=== PATIENT | male | born 1955 | race Caucasian/White ===

== ENCOUNTER 2017-11-17 18:53 | Outpatient (REF) | payer MEDICAID, SELFPAY ==
[2017-11-17 19:44] LABS: Anion Gap 10.7 mmol/L (3-11); BUN 25 mg/dL (7-18); CO2 22.3 mmol/L (21.0-32.0); CREATININE 1.33 mg/dL (0.70-1.30); Calcium 8.8 mg/dL (8.5-10.1); Chloride 107 mmol/L (98-107); Estimated GFR 54.13 (mL/min/1.73m2); Glucose 99 mg/dL (70-100); Potassium 4.4 mmol/L (3.5-5.1); Sodium 140 mmol/L (136-145)
== END 2017-11-17 19:13 ==
LOC: NCHCN 18:53
PROVIDERS: PCP Nurse Practitioner Adult Health; Referring Provider Nurse Practitioner Family; Visit Provider Nurse Practitioner Family
DX: I10 Essential (primary) hypertension (principal)
CPT/HCPCS: 80048

== ENCOUNTER 2017-12-01 19:06 | Outpatient (REF) | payer MEDICAID, SELFPAY ==
[2017-12-01 20:04] LABS: Anion Gap 10.8 mmol/L (3-11); BUN 20 mg/dL (7-18); CO2 24.2 mmol/L (21.0-32.0); CREATININE 1.21 mg/dL (0.70-1.30); Calcium 8.8 mg/dL (8.5-10.1); Chloride 102 mmol/L (98-107); Glucose 100 mg/dL (70-100); HDL Cholesterol 42 mg/dL (40-60); LDL CHOLESTEROL 135 mg/dL (<100); Potassium 4.6 mmol/L (3.5-5.1); Sodium 137 mmol/L (136-145)
== END 2017-12-01 19:26 ==
LOC: NCHCN 19:06
PROVIDERS: PCP Nurse Practitioner Adult Health; Visit Provider Nurse Practitioner Family
DX: I10 Essential (primary) hypertension (principal); E78.5 Hyperlipidemia, unspecified; Z72.0 Tobacco use
CPT/HCPCS: 80048; 83721; 83718

== ENCOUNTER 2024-01-10 03:36 | Emergency (ER) | payer MEDICARE, SELFPAY ==
[2024-01-10] VITALS (57 sets, daily range): BP systolic 164–230; BP diastolic 95–143; PULSE 57–85; RESP 11–28; TEMP 35.5–36.6; O2SAT 91–98
--- NOTE | 2024-01-10 03:30 | RT.EKG_ITS ---
APPROVED REPORT Exam: Resting ECG Reason for Exam: chest pain Patient Location: E HR:81 bpm ECG Measurements Heart Rate [address] 251 P 30 QRSd 107 QRS -24 QT 382 T 95 QTc 444 Conclusion Sinus rhythm...normal P axis, V-rate 60- [address] interval...CT >220, V-rate 50- 90 ST elevation secondary to LVH...Multiple VCG criteria Inferior STEMI w Lateral Reciprocal change
--- NOTE | 2024-01-10 03:38 | ED.GENADUL_ITS ---
Discharge Plan Disposition Patient Disposition: Transfer-Acute Inpatient Care Specific Acute Inpt Facility: [facility] Condition: Stable Discharge Details Clinical Impression: Acute ST elevation myocardial infarction (STEMI) of inferior wall Primary Care Provider: Rain Valencia ED Provider: Jose Butler [facility] General Mode of arrival: ambulatory . Date/Time Provider Initiated Documentation: 01/10/24 03:38 . Limitations to Documentation: no limitations . Information obtained by: patient and RN notes reviewed . HPI Narrative: Patient presents to ED with complaint of chest pain. Patient reports that around 2300 he developed what he thought was heartburn. He was unable to fall asleep. He took Tums and Aleve without relief. Pain continued to get worse. He had some lightheadedness and diaphoresis. He never developed any shortness of breath. No radiation of pain to the back or neck. Some radiation of pain down both arms. He denies any abdominal pain, vomiting. He has not seen a physician in many years. He did have a prior diagnosis of hypertension. He is also a smoker. He is currently not taking any medication. Related Data Allergies Allergy/AdvReac Type Severity Reaction Status Date / Time No Known Allergies Allergy Unverified 01/10/24 04:50 Review of Systems Narrative: As per HPI Exam Narrative Exam Narrative: Const: WDWN elderly male in NAD. VS per triage. HEENT: NC/AT. Normal facial exam. Neck: Supple. Trachea midline. Lungs: Normal respiratory effort. Lungs are clear. Cor: RRR without murmur. Good radial pulses. GI: Soft/ND/NT. Neuro: A+O x 3. Normal speech, mentation, gait. Cranial nerves II - XII grossly intact. No gross motor or sensory deficit. Ext: No C/C/E. Medical Decision Making Patient arrives to ED with complaint of chest pain that began at 2300 hrs. He has had some diaphoresis and lightheadedness but denies shortness of breath, back pain, abdominal pain. He has no neurologic changes. His lungs are clear. His saturations are normal. His blood pressure is markedly elevated. His EKG shows inferior wall STEMI with lateral reciprocal changes. Call was placed to [facility] immediately. IVs established and laboratory studies sent. Portable chest x-ray obtained. Patient given aspirin and Plavix, loading doses. He is also started on nitroglycerin and heparin intravenously. After discussion with cardiology at [facility] we have held the TNK for now given his markedly elevated blood pressure. If we can get his blood pressure down with nitroglycerin consider given TNK. 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 Patient's blood pressure slowly responded to the nitroglycerin drip. He was also given 4 morphine and 4 Zofran. Received a call back from cardiology. Given the delay in transfer while waiting for the helicopter to arrive we will obtain CTA of the chest and abdomen to rule out a dissection simply because of the markedly elevated blood pressure. Laboratory studies look surprisingly good. His white count is elevated 14.8 but hemoglobin is normal, little bit of renal insufficiency, normal electrolytes. Surprisingly initial troponin is 73 which is top limit for our reference range. CTA is completed and pending read. Blood pressure on return from CT is 180/95. Will rediscussed with cardiology regarding thrombolytics. Given his improved blood pressure and negative CTA we will proceed with 50 mg TNK per cardiology request. Patient is a lot more comfortable with only slight pain at this time. Nitroglycerin is at 80 mcgs. 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 Imaging Data Radiologic Study: Attestation: I personally reviewed and interpreted this imaging study as follows: Imaging: X-Ray My impression: Portable chest x-ray with no acute cardiopulmonary findings per my read. Lab Data Lab results reviewed: Yes I reviewed the patient's lab results. Lab results narrative: Per [facility] ECG Data Attestation: I personally reviewed and interpreted this ECG (s) as follows: Prior ECG tracings: not available for review Interpretation: STEMI Critical Care Time Critical Care Time Critical Care Time: Yes Total Critical Care Time: 75 Attestation: Upon my evaluation, this patient had a high probability of imminent or life- threatening deterioration, which required my direct attention, intervention, and personal management. I have personally provided 75 minutes of critical care time exclusive of time spent on separately billable procedures. Time includes monitoring for potential decompensation, ordering of tests and medications, review of laboratory and radiology results, discussion with consultants and documentation . Interventions were performed as documented above in procedures. [facility] All Active Problems (Updated 01/10/24 @ 04:10 by Jose Butler MD) Acute ST elevation myocardial infarction (STEMI) of inferior wall (Acute) Medical History HTN (hypertension) Social History Smoking/Tobacco Use Status: Current every day Tobacco Type: cigarettes Years smoked: 50 Smoking risk assessment performed?: Yes Alcohol Intake: former Drug use: Never Substance use type: does not use Housing: house Do you feel safe at home: Yes Do you feel safe in your relationship?: Yes
[2024-01-10] MEDS: Clopidogrel 300 MG TAB PO (03:53)
[2024-01-10] MEDS: Aspirin 81 MG CHEW (03:53)
[2024-01-10] MEDS: nitroGLYcerin in D5W 50 MG/250 ML BTL 12 MG IV (04:00)
[2024-01-10] MEDS: Heparin in 0.45% NaCl 25,000 UNIT/250 ML BAG 10 UNIT IVINF (04:01)
--- NOTE | 2024-01-10 04:08 | DI.RAD_ITS ---
Exam(s) XR PORTABLE CHEST AP EXAM: XR PORTABLE CHEST AP CLINICAL HISTORY: stemi alert TECHNIQUE: 2D digital imaging was performed of the chest. One image was obtained. An AP view was ob tained. COMPARISON: No exams were available for comparison FINDINGS: MEDIASTINUM: Normal. HEART: Normal. PULMONARY VASCULATURE: Normal. LUNGS: Clear. PLEURAL SPACE: No pleural effusion or pneumothorax. BONE:Within normal limits for the patient's age. OTHER FINDINGS:Normal. IMPRESSION: No acute pulmonary findings. DATA REPOSITORY: RADIATION DOSE DELIVERED:
[2024-01-10 04:09] LABS: Abs Immature Grans 0.06 10^3/uL (0.0-0.06); Absolute Basophil Count 0.06 10^3/uL (0.0-0.2); Absolute Eosinophil Count 0.15 10^3/uL (0.0-0.7); Absolute Monocyte Count 0.53 10^3/uL (0.1-0.8); Basophils % 0.4 %; HCT 51.5 % (40.0-50.0); HGB 17.1 g/dL (13.5-17.5); Immature Grans % 0.4 %; Lymphocytes % 8.8 %; MCH 31.2 pg (27.0-33.0); MCHC 33.2 % (32.0-36.0); MCV 94 fL (80-95); MPV 10.3 fL (8.0-11.0); Monocytes % 3.6 %; Neutrophils % 85.8 %; Platelet Count 213 10^3/uL (130-400); RBC 5.48 10^6/uL (4.36-5.78); RDW 12.3 % (11.8-14.1); RDW-SD 42.7 fL
--- NOTE | 2024-01-10 04:09 | DI.VRAD_ITS ---
PROCEDURE INFORMATION: Exam: XR Chest Exam date and time: 01/10/2024 4:01 AM Age: 68 years old Clinical indication: Chest pressure; Patient HX: Chest pain, stemi TECHNIQUE: Imaging protocol: Radiologic exam of the chest. Views: 1 view. COMPARISON: No relevant prior studies available. FINDINGS: Lungs: Unremarkable. No consolidation. Pleural spaces: Unremarkable. No pleural effusion. No pneumothorax. Heart/Mediastinum: Unremarkable. No cardiomegaly. Bones/joints: Unremarkable. IMPRESSION: No acute findings. Dictated and Authenticated by: Destin Ledesma MD. Ordering:WOOD Garcia MD
[2024-01-10] MEDS: MORPHine 4 MG/ML SYR IVP (04:19)
[2024-01-10 04:28] LABS: PTT Activated 22.5 sec (23.6-32.8); Prothrombin Time 9.8 sec (9.1-11.1)
[2024-01-10 04:37] LABS: ALT 25 U/L (16-63); AST 16 U/L (15-37); Albumin 4.2 g/dL (3.4-5.0); Alkaline Phosphatase 98 U/L (46-116); BUN 31 mg/dL (7-18); Bilirubin, Total 0.27 mg/dL (0.2-1.0); CREATININE 1.5 mg/dL (0.70-1.30); Chloride 106 mmol/L (98-107); Estimated GFR 49.77 (mL/min/1.73m2); Glucose 160 mg/dL (74-106); Magnesium 2.2 mg/dL (1.8-2.4); Potassium 4.3 mmol/L (3.5-5.1); Sodium 145 mmol/L (136-145)
[2024-01-10 04:38] LABS: Troponin I 73 ng/L (<or=76)
[2024-01-10 04:44] LABS: Calcium 10.5 mg/dL (8.5-10.1)
[2024-01-10] MEDS: Omnipaque 350 MG/ML 100 ML BTL IJ (04:49)
[2024-01-10] MEDS: Normal Saline - Diluent 50 ML VIAL IJ (04:50)
--- NOTE | 2024-01-10 04:51 | DI.CT_ITS ---
Exam(s) CT THORAX ABDOMEN CTA EXAM: CT THORAX ABDOMEN CTA CLINICAL HISTORY: markedly elevated BP; STEMI. TECHNIQUE: Imaging Protocol: Axial CT angiography was performed with multi-slice acquisition and m ulti-planar and/or 3D reconstructions. Lung Computer Aided Detection (CAD) was utilized. CONTRAST MATERIAL: Intravenous: Omnipaque 350 contrast volume:100 mL Oral: No COMPARISON: CR,XR XR PORTABLE CHEST AP from 01/10/2024 FINDINGS: CHEST: Tracheobronchial tree: Patent where visualized. There is no evidence of bronchiectasis. Pulmonary parenchyma: No consolidation or dominant measurable mass. There is atelectasis seen in the dependent portion of the lungs. Pulmonary Arteries: Due to the timing of the bolus, the pulmonary arteries are inadequately opacified for evaluation of pulmonary emboli. Mediastinum and Joyce: No dominant adenopathy or fluid collection. The esophagus is unremarkable.There is a small hiatal hernia. Visualized thyroid: Unremarkable. Pleura: No effusion or pneumothorax. Heart: Cardiomegaly. Two vessel coronary artery calcification is present. No pericardial effusion. Aorta: Thoracic aorta non-dilated. Atherosclerotic calcification is present. There is no evidence of dissection. Soft Tissues: Bilateral gynecomastia is present. Bones: Within normal limits for the patient's age. ABDOMEN AND PELVIS: Abdomen: Celiac axis/mesenteric arteries: No evidence of occlusion or significant stenosis. Mild atherosclero sis is seen at the origin of both the superior mesenteric and celiac axis. Renal Arteries: No evidence of occlusion or significant stenosis. Mild atherosclerotic calcification is seen at the origins of the renal arteries. Aorta: No evidence of occlusion or significant stenosis. No aneurysm or dissection. Atheroscleroti c calcification is present. Iliac Arteries: The common iliac arteries in the proximal internal and external iliac arteries are v isualized. No occlusion or significant stenosis is seen. Atherosclerotic calcification is present. ABDOMEN: Liver: Normal density. There is a small cyst in the inferior pole of the right lobe of the liver. No suspicious hepatic masses are seen. Gallbladder and Biliary Tract: There is a gallstone present. No biliary ductal dilatation. Pancreas: Normal density, no abnormal calcifications or inflammatory process. Spleen: Normal. Adrenals: No masses seen. Kidneys: Normal size, contour and axis. There is a 2 mm nonobstructing stone in the midpole of the ri ght kidney. There is a simple cyst on the left kidney. No follow-up is recommended. Bowel: There is diverticulosis seen in the colon without evidence of acute diverticulitis. No signif icant bowel wall thickening or obstruction is present. Appendix is unremarkable. Peritoneal Cavity: No ascites, collection or mesenteric inflammatory response. No free air. Lymph Nodes: Within normal limits. Bones: Within normal limits for the patient's age. Soft Tissues: There are 2 small lipomas along the right chest wall. The largest measures 4.0 AP by 2 .0 transverse by 5.6 cm craniocaudad. (Series 16, image 156). IMPRESSION: 1. No acute pulmonary process. 2. No acute abdominal process. 3. No evidence of thoracic aortic dissection or aneurysm. 4. No evidence of abdominal aortic aneurysm or dissection. RADIATION DOSE DELIVERED: 619.35mGy.cm Total DLP DATA REPOSITORY: All CT scans at this facility are submitted to the National Radiology Data Registry (NRDR) Dose Index Registry (DIR) with the [employer] (A[employer]). RADIATION OPTIMIZATION: All CT scans at this facility use at least one of these dose optimization te chniques: automated exposure control; mA and/or kV adjustment per patient size (includes targeted exa ms where dose is matched to clinical indication); or iterative reconstruction.
--- NOTE | 2024-01-10 05:01 | DI.VRAD_ITS ---
PROCEDURE INFORMATION: Exam: CTA Chest With Contrast CTA Abdomen With Contrast Exam date and time: 01/10/2024 4:27 AM Age: 68 years old Clinical indication: Other: Markedly elevated BP; Stemi TECHNIQUE: Imaging protocol: Computed tomographic angiography of the chest with contrast. Exam focused on the arteries. Computed tomographic angiography of the abdomen with contrast. Exam focused on the arteries. 3D rendering (Not supervised by radiologist): MIP and/or 3D reconstructed images were created by the technologist. Radiation optimization: All CT scans at this facility use at least one of these dose optimization techniques: automated exposure control; mA and/or kV adjustment per patient size (includes targeted exams where dose is matched to clinical indication); or iterative reconstruction. Contrast material: [id number]; Contrast volume: 100 ml; Contrast route: INTRAVENOUS (IV); COMPARISON: CR XR PORTABLE CHEST AP 01/10/2024 4:01 AM FINDINGS: VASCULATURE: Pulmonary arteries: Suboptimal contrast bolus in the pulmonary arteries for evaluation for PE. No obvious large central PE. Aorta: Atherosclerotic aorta. No aneurysm or acute aortic syndrome. Celiac trunk and mesenteric arteries: No occlusion or significant stenosis. Renal arteries: No occlusion or significant stenosis. CHEST: Lungs: Unremarkable. No consolidation. No masses. Pleural spaces: Unremarkable. No pneumothorax. No pleural effusion. Heart: Cardiomegaly. Esophagus: Esophagus is unremarkable. Diaphragm: Small hiatal hernia. ABDOMEN AND PELVIS: Liver: No mass. Gallbladder and biliary ducts: Cholelithiasis. No cholecystitis. Pancreas: Unremarkable. No mass. No ductal dilation. Spleen: Unremarkable. No splenomegaly. Adrenal glands: Unremarkable. No mass. Kidneys: Left renal cysts. Stomach and bowel: Colonic diverticulosis. No diverticulitis. No bowel wall thickening or intestinal obstruction. Intraperitoneal space: Unremarkable. No free air. No significant fluid collection. Lymph nodes: Unremarkable. No enlarged lymph nodes. Bones/joints: Unremarkable. No acute fracture. Soft tissues: Gynecomastia. IMPRESSION: Atherosclerotic aorta. No aneurysm or acute aortic syndrome. Dictated and Authenticated by: Destin Ledesma MD. Ordering:WOOD Garcia MD
[2024-01-10 05:14] LABS: Troponin I 155 ng/L (<or=76)
[2024-01-10] MEDS: Atorvastatin 40 MG TAB 80 MG PO (05:21)
[2024-01-10] MEDS: Tenecteplase 50 MG KIT IVP (05:21)
== END 2024-01-10 05:41 | disposition short-term general hospital (02) ==
LOC: ER 04:38
PROVIDERS: Emergency Provider Emergency Medicine; PCP Nurse Practitioner Adult Health
DX: R07.9 Chest pain, unspecified (principal); R11.0 Nausea; I21.19 ST elevation (STEMI) myocardial infarction involving other coronary artery of inferior wall; Z86.79 Personal history of other diseases of the circulatory system; F17.200 Nicotine dependence, unspecified, uncomplicated
CPT/HCPCS: 71275; 74175; 80053; 93005; 96365; 96367; 96375; 99291; 71045; 83735; 84484; 85025; 85610; 85730; 93010; J1644; J2270; J2305; J3101; J3490